=== PATIENT | male | born 2000 | race Hispanic/Latino ===

== ENCOUNTER 2024-09-18 00:51 | Emergency (ER) | payer OTHER ==
[~2024-09-18] VITALS: Ht 177.8 cm; Wt 90.8 kg
[2024-09-18 08:35] VITALS: BP 137/85; TEMP 98.7; O2SAT 97
== END 2024-09-18 09:41 | disposition home or self-care (01) ==
LOC: M ED 00:51
DX: T33.831A Superficial frostbite of right toe(s), initial encounter (principal); T33.832A Superficial frostbite of left toe(s), initial encounter